=== PATIENT | male | born 1985 | race Caucasian/White ===

== ENCOUNTER 2018-01-25 09:08 | Emergency (ER) | payer BC ==
--- NOTE | 2018-01-25 09:12 | EDM.PDOC ---
ED HPI GENERAL MEDICAL PROBLEM - General Chief Complaint: Back Pain or Injury Stated Complaint: MIDDLE BACK PAIN Time Seen by Provider: 01/25/18 09:12 Source of Information: Reports: Patient History Limitations: Reports: No Limitations - History of Present Illness INITIAL COMMENTS - FREE TEXT/NARRATIVE: HISTORY AND PHYSICAL: History of present illness: 32-year-old male presenting to the emergency department with chief complaint of back pain 1 week. Patient states that approximately 1 week ago he began to have lower to mid back pain. He denies any trauma to the area and states that he woke up with it. He has had no similar symptoms in the past and denies any previous back surgery or back issues. He did see a chiropractor yesterday who told him that his "pelvis was out place" and recommended x-rays. Patient denies any bowel or bladder incontinence. Pain is primarily localized to the mid to lower back without radiation into lower extremities. Patient has a history of migraines but denies any other significant past medical history. He has no medical allergies. Patient is new to [place] and does not see a primary care provider. Review of systems: As per history of present illness and below otherwise all systems reviewed and negative. Past medical history: As per history of present illness and as reviewed below otherwise noncontributory. Surgical history: As per history of present illness and as reviewed below otherwise noncontributory. Social history: No reported history of drug or alcohol abuse. Family history: As per history of present illness and as reviewed below otherwise noncontributory. Physical exam: HEENT: Atraumatic, normocephalic, pupils reactive, negative for conjunctival pallor or scleral icterus, mucous membranes moist, throat clear, neck supple, nontender, trachea midline. Lungs: Clear to auscultation, breath sounds equal bilaterally, chest nontender. Heart: S1S2, regular, negative for clicks, rubs, or JVD. Abdomen: Soft, nondistended, nontender. Negative for masses or hepatosplenomegaly. Negative for costovertebral tenderness. Pelvis: Stable nontender. Genitourinary: Deferred. Rectal: Deferred. Extremities: Atraumatic, negative for cords or calf pain. Neurovascular unremarkable. Neuro: Awake, alert, oriented. Cranial nerves II through XII unremarkable. Cerebellum unremarkable. Motor and sensory unremarkable throughout. Exam nonfocal. Back: No step-offs, tenderness palpation T12 through L5, left paraspinal muscle spasms along T12-L5. No significant focal neurologic deficits. Diagnostics: [] Therapeutics: Toradol 60 mg IM 1, Flexeril 10 mg by mouth 3 times a day #12 Impression: Lower back strain Paraspinal muscle spasm Plan: On exam there was no significant neurological findings. He was given 60 mg of Toradol IM that improved his symptoms. He was also given a perscription for Flexeril 10 mg by mouth 3 times a day #12 and instructed to follow-up with primary care provider if his symptoms persisted. Patient was instructed to use ibuprofen as well as heat and ice for symptomatically relief. Instructed to return to emergency department if he had any new or worsening symptoms. Middle Low Back Pain Score (Numeric/FACES): 10 ED ROS GENERAL - Review of Systems Review Of Systems: ROS reveals no pertinent complaints other than HPI. ED EXAM, GENERAL - Physical Exam Exam: See Below Course - Vital Signs Last Recorded V/S: Last Vital Signs Temp 97.6 F 01/25/18 09:21 Pulse 78 01/25/18 09:21 Resp 18 01/25/18 09:21 BP 141/95 H 01/25/18 09:21 Pulse Ox 98 01/25/18 09:21 - Orders/Labs/Meds Meds: Medications Discontinued Medications Generic Name Dose Route Start Last Admin Trade Name Yesenia PRN Reason Stop Dose Admin Ketorolac Tromethamine 60 mg 01/25/18 09:34 Toradol IM 01/25/18 09:35 ONETIME ONE Departure - Departure Time of Disposition: 09:42 Disposition: Home, Self-Care 01 Condition: Good Clinical Impression: Low back strain Qualifiers: Encounter type: initial encounter Qualified Code(s): S39.012A - Strain of muscle, fascia and tendon of lower back, initial encounter - Discharge Information Forms: ED Department Discharge Additional Instructions: My general discharge The following information is given to patients seen in the emergency department who are being discharged to home. This information is to outline your options for follow-up care. We provide all patients seen in our emergency department with a follow-up referral. The need for follow-up, as well as the timing and circumstances, are variable depending upon the specifics of your emergency department visit. If you don't have a primary care physician on staff, we will provide you with a referral. We always advise you to contact your personal physician following an emergency department visit to inform them of the circumstance of the visit and for follow-up with them and/or the need for any referrals to a consulting specialist. The emergency department will also refer you to a specialist when appropriate. This referral assures that you have the opportunity for follow-up care with a specialist. All of these measure are taken in an effort to provide you with optimal care, which includes your follow-up. Under all circumstances we always encourage you to contact your private physician who remains a resource for coordinating your care. When calling for follow-up care, please make the office aware that this follow-up is from your recent emergency room visit. If for any reason you are refused follow-up, please contact the [facility] at and asked to speak to the emergency department charge nurse. [facility] [address] [place] [id number] [id number] Take medications as prescribed. May use ibuprofen and Tylenol for pain and inflammation. May use ice and heat for symptomatically relief. Follow with a primary care provider with one of the numbers above. Return to emergency department if any new or worsening symptoms.
[2018-01-25] MEDS ORDERED: Ketorolac 60 MG/2 ML SDV IM ONE (09:34)
== END 2018-01-25 10:10 | disposition home or self-care (01) ==
LOC: MW.ED 09:08
DX: S39.012A Strain of muscle, fascia and tendon of lower back, initial encounter (principal); X58.XXXA Exposure to other specified factors, initial encounter
CPT/HCPCS: 96372; 99283; J1885; 99282